=== PATIENT | female | born 1995 | race Caucasian/White ===

== ENCOUNTER 2023-01-29 02:09 | Emergency (ER) | payer MEDICAID, OTHER ==
[2023-01-29 02:28] VITALS: BP 121/66; PULSE 131; RESP 20
[2023-01-29] MEDS ORDERED: MORPHINE SULFATE 10 MG/ML CPJ IV NR (02:30)
[2023-01-29] MEDS ORDERED: MORPHINE SULFATE 10 MG/ML CPJ IV ONE (02:30)
[2023-01-29] MEDS ORDERED: ETOMIDATE 2MG/ML 10ML VIAL IV ONE (02:45)
[2023-01-29] MEDS ORDERED: SUCCINYLCHOLINE CHLORIDE 200MG/10ML IV ONE (02:45)
[2023-01-29] MEDS ORDERED: VECURONIUM BROMIDE 10 MG/VIAL IV ONE (02:45)
== END 2023-01-29 02:57 | disposition short-term general hospital (02) ==
LOC: EDBD 02:09 → ER 02:09
DX: S41.032A Puncture wound without foreign body of left shoulder, initial encounter (principal); S21.132A Puncture wound without foreign body of left front wall of thorax without penetration into thoracic cavity, initial encounter; F19.90 Other psychoactive substance use, unspecified, uncomplicated; W34.00XA Accidental discharge from unspecified firearms or gun, initial encounter; Y93.89 Activity, other specified; Y92.89 Other specified places as the place of occurrence of the external cause; Y99.8 Other external cause status
CPT/HCPCS: 31500 ×2; 99291; 96374; 96375; J2270